=== PATIENT | male | born 1970 | race Caucasian/White ===

== ENCOUNTER 2018-05-11 14:51 | Emergency (ER) | payer SELFPAY ==
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
[2018-05-11] MEDS ORDERED: Amoxicillin PO (*) 250 MG CAP PO ONE (17:10)
[2018-05-11] MEDS ORDERED: Amoxicillin PO (*) 500 MG CAP PO ONE (17:10)
[2018-05-11] MEDS ORDERED: Benzonatate CAP* 100 MG PO ONE (17:10)
--- NOTE | 2018-05-11 17:15 | UC ---
Respiratory Complaint HPI - HPI Summary HPI Summary: 48 yo male with a 4-5 day hx of cough productive no f/c no cp or sob - History of Current Complaint Chief Complaint: UCRespiratory Stated Complaint: CHEST CONGESTION Time Seen by Provider: 05/11/18 16:08 Hx Obtained From: Patient Onset/Duration: Gradual Onset Timing: Constant Severity Initially: Mild Severity Currently: Moderate Pain Intensity: 0 Pain Scale Used: 0-10 Numeric Character: Cough: Productive Aggravating Factors: Nothing Alleviating Factors: Nothing Associated Signs And Symptoms: Positive: Nasal Congestion - Allergies/Home Medications Allergies/Adverse Reactions: Allergies Allergy/AdvReac Type Severity Reaction Status Date / Time latex Allergy Rash Verified 05/11/18 15:06 PMH/Surg Hx/FS Hx/Imm Hx Previously Healthy: Yes - Surgical History Surgical History: Yes Surgery Procedure, Year, and Place: APPENDECTOMY. tonsilectomy - Family History Known Family History: Positive: Cardiac Disease, Hypertension, Respiratory Disease - Social History Alcohol Use: Occasionally Alcohol Amount: 1 beer a day with dinner Substance Use Type: None Smoking Status (MU): Light Every Day Tobacco Smoker Type: Cigarettes Amount Used/How Often: 1/2 PPD Length of Time of Smoking/Using Tobacco: 27+ years Have You Smoked in the Last Year: Yes Household Exposure Type: Cigarettes Cessation Counseling: Patient Advised to Stop Review of Systems Constitutional: Negative Skin: Negative Eyes: Negative ENT: Sinus Congestion Respiratory: Cough Cardiovascular: Negative Gastrointestinal: Negative Genitourinary: Negative Motor: Negative Neurovascular: Negative Musculoskeletal: Negative Neurological: Negative Psychological: Negative Is Patient Immunocompromised?: No All Other Systems Reviewed And Are Negative: Yes Physical Exam Triage Information Reviewed: Yes Appearance: Well-Appearing, No Pain Distress, Well-Nourished Vital Signs: Initial Vital Signs Temp 97.4 F 05/11/18 15:05 Pulse 79 05/11/18 15:05 Resp 18 05/11/18 15:05 BP 130/89 05/11/18 15:05 Pulse Ox 100 05/11/18 15:05 Vital Signs Reviewed: Yes Eyes: Positive: Conjunctiva Clear ENT: Positive: Hearing grossly normal, Pharynx normal, TMs normal. Negative: Nasal congestion, Nasal drainage, Tonsillar swelling, Tonsillar exudate Dental: Positive: Other: - upper dentures Neck: Positive: Supple, Nontender, No Lymphadenopathy Respiratory: Positive: Lungs clear, Normal breath sounds, No respiratory distress, No accessory muscle use, Decreased breath sounds - right base Cardiovascular: Positive: RRR, No Murmur Musculoskeletal: Positive: ROM Intact, No Edema Neurological: Positive: Alert Psychological Exam: Normal Skin Exam: Normal UC Diagnostic Evaluation - Laboratory O2 Sat by Pulse Oximetry: 100 - normal/not hypoxic - Radiology Xray Interpretation: No Acute Changes Radiology Interpretation Completed By: Radiologist Respiratory Course/Dx - Differential Dx/Diagnosis Provider Diagnoses: acute bronchitis. smoker. elevated BP without diagnosis of HTN Discharge - Sign-Out/Discharge Documenting (check all that apply): Patient Departure All imaging exams completed and their final reports reviewed: Yes - Discharge Plan Condition: Stable Disposition: HOME Prescriptions: Amoxicillin PO (*) [Amoxicillin 875 MG (*)] 875 mg PO BID #20 tab Benzonatate CAP* [Tessalon CAP*] 100 - 200 mg PO TID PRN #28 cap PRN Reason: Cough Patient Education Materials: How to Stop Smoking (ED), Acute Bronchitis (ED) Referrals: [facility]FERR[facility] [Outside] (you need to find a primary care provider to follow your BP) No Primary Care Phys,NOPCP [Primary Care Provider] - Additional Instructions: recheck in 4-6 days if not better - Billing Disposition and Condition Condition: STABLE Disposition: Home
[2018-05-11 17:22] VITALS: BP 128/83
== END 2018-05-11 17:25 | disposition home or self-care (01) ==
LOC: UCEAST 14:51
DX: J20.9 Acute bronchitis, unspecified (principal); R03.0 Elevated blood-pressure reading, without diagnosis of hypertension; Z91.040 Latex allergy status; F17.210 Nicotine dependence, cigarettes, uncomplicated
CPT/HCPCS: 71046; 99212; A9270-GY; G0463

== ENCOUNTER 2018-06-08 15:19 | Emergency (ER) | payer BC ==
[2018-06-08 15:33] VITALS: BP 136/93
[2018-06-08] MEDS ORDERED: Ketorolac INJ* 30 MG/ML 1 ML VIAL IM ONE (15:47)
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
== END 2018-06-08 16:18 | disposition home or self-care (01) ==
LOC: UCEAST 15:19
DX: M54.5 Low back pain (principal); Z91.040 Latex allergy status; F17.210 Nicotine dependence, cigarettes, uncomplicated
CPT/HCPCS: 96372; 99212; G0463; J1885

== ENCOUNTER 2019-05-23 11:43 | Emergency (ER) | payer BC ==
[2019-05-23 11:52] VITALS: BP 100/80
--- NOTE | 2019-05-23 12:07 | UC ---
Bite Injury/Animal HPI - HPI Summary HPI Summary: Patient is a 49yo male presenting with a tender swollen left index finger after his own cat bite him yesterday afternoon. Patient states his finger began to swell almost immediately. Describes a dull aching pain. He notes new redness of the finger today and limited ROM due to swelling. Denies any drainage from the wound. He denies loss of sensation. He denies fever, chills, and n/v. He notes needing a tetanus booster. He took ibuprofen which gave some pain relief. - History of Current Complaint Chief Complaint: UCBiteInjury Stated Complaint: CAT BITE Time Seen by Provider: 05/23/19 11:44 Hx Obtained From: Patient Severity Currently: Moderate Severity Initially: Mild Pain Intensity: 7 Pain Scale Used: 0-10 Numeric Onset/Duration: Gradual Onset, Lasting Days - 1 day Type of Bite: Pet - cat Has Animal Been Immunized?: Unknown Character: Puncture Aggravating Factor(s): Other - movement Associated Signs And Symptoms: Positive: Erythema, Swelling, Limited ROM. Negative: Fever, Drainage, Numbness/Tingling Hx of Bite: Provoked by: - was holding cat when he accidentally closed the cat' s tail in the door - Allergies/Home Medications Allergies/Adverse Reactions: Allergies Allergy/AdvReac Type Severity Reaction Status Date / Time latex Allergy Rash Verified 05/23/19 11:52 PMH/Surg Hx/FS Hx/Imm Hx - Surgical History Surgical History: Yes Surgery Procedure, Year, and Place: APPENDECTOMY. tonsilectomy - Family History Known Family History: Positive: Cardiac Disease, Hypertension, Diabetes, Respiratory Disease, Non-Contributory - Social History Alcohol Use: Daily Alcohol Amount: 1 beer a day with dinner Substance Use Type: None Smoking Status (MU): Heavy Every Day Tobacco Smoker Type: Cigarettes Amount Used/How Often: 1/2 PPD Length of Time of Smoking/Using Tobacco: 27+ years Have You Smoked in the Last Year: Yes Household Exposure Type: Cigarettes Review of Systems All Other Systems Reviewed And Are Negative: No Constitutional: Positive: Negative. Negative: Fever, Chills Skin: Positive: Other - Patient notes puncture wounds and erythema on left index finger Respiratory: Positive: Negative Cardiovascular: Positive: Negative Motor: Positive: Decreased ROM Neurovascular: Negative: Decreased Sensation Musculoskeletal: Positive: Decreased ROM, Edema Neurological: Negative: Headache, Paresthesia, Numbness Physical Exam Triage Information Reviewed: Yes Appearance: Well-Appearing, No Pain Distress, Well-Nourished Vital Signs: Initial Vital Signs Temp 98.3 F 05/23/19 11:48 Pulse 84 05/23/19 11:48 Resp 18 05/23/19 11:48 BP 100/80 05/23/19 11:48 Pulse Ox 100 05/23/19 11:48 Vital Signs Reviewed: Yes Musculoskeletal Exam: Normal Musculoskeletal: Positive: Strength Limited @ - left index finger due to pain, ROM Limited @ - left index finger due to swelling, Edema @ - left index finger Neurological: Positive: Other: - left index finger sensation intact Skin: Positive: Other - four small puncture woulds noted on dorsal surface of left proximal index finger. erythema and edema of finger noted. no drainage present. Bite Injury Course/Dx - Course Course Of Treatment: Patient was bitten by his own cat with low risk for rabies. Discussed with patient his allergy to latex and history of illness with prior booster that prevented us from administering a tetanus booster. Patient was instructed to follow up with referred PCP or [facility] within the next week to further discuss receiving a booster. This was also discussed with Dr. Nevarez who agreed to not administering the booster. He was instructed to take Augmentin as prescribed for the treatment of cat bite and keep the area clean and dry. He may take over the counter pain medication as directed for pain relief. Directed to return or go to the emergency room if he experiences worsening symptoms, drainage from the wound, fever, chills, nausea, or vomiting. - Differential Dx/Diagnosis Provider Diagnosis: Cat bite of finger Discharge ED - Sign-Out/Discharge Documenting (check all that apply): Patient Departure All imaging exams completed and their final reports reviewed: No Studies - Discharge Plan Condition: Stable Disposition: HOME Prescriptions: Amoxicillin/Clavulanate TAB* [Augmentin TAB 875*] 875 mg PO BID #14 tab Patient Education Materials: Animal Bite (ED) Referrals: No Primary Care Phys,NOPCP [Primary Care Provider] - As Soon As Possible Additional Instructions: Take Augmentin as prescribed for the treatment of your cat bite. Keep the area clean and dry. You may take over the counter pain medication as directed for pain relief. Return or go to the emergency room if you experience worsening symptoms, drainage from the wound, fever, chills, nausea, or vomiting. Please follow up within the next 7 days with either [facility] or [facility] to discuss the possibility of receiving a tetanus booster. Refer to pamphlets for contact information. - Billing Disposition and Condition Condition: STABLE Disposition: Home
== END 2019-05-23 12:34 | disposition home or self-care (01) ==
LOC: UCEAST 11:43
DX: S61.251A Open bite of left index finger without damage to nail, initial encounter (principal); W55.01XA Bitten by cat, initial encounter; Y92.009 Unspecified place in unspecified non-institutional (private) residence as the place of occurrence of the external cause; F17.210 Nicotine dependence, cigarettes, uncomplicated; Z91.040 Latex allergy status
CPT/HCPCS: 99212; G0463